=== PATIENT | female | born 1955 | race Caucasian/White ===

== ENCOUNTER 2016-08-04 12:34 | Inpatient (IN) | payer MEDICARE, OTHER ==
[2016-08-02 18:17] LABS: ASCORBIC ACID (UR NOT ORDER) NEG (NEG); BILIRUBIN, URINE NEGATIVE (NEG); KETONE, URINE NEGATIVE (NEG); LEUKOCYTE ESTERASE(NOT OR NEG (NEG); WBC (NOT ORDERED) (RFLEX) 1 (0-5)
[2016-08-02 18:25] LABS: BASOPHILS 0.4 %; BASOPHILS ABSOLUTE 0.03 10/3/uL (0.0-0.16); EOSINOPHILS 1.6 %; EOSINOPHILS ABSOLUTE 0.14 10/3/uL (0.0-0.53); HEMOGLOBIN 13.5 g/dL (12.0-16.0); IMMATURE GRANULOCYTES 0.1 %; IMMATURE GRANULOCYTES ABSOLUTE 0.01 10/3/uL (0.0-0.11); LYMPHOCYTES 41.9 %; LYMPHOCYTES ABSOLUTE 3.56 10/3/uL (0.67-4.30); MEAN CORPUS HGB CONC 34.6 g/dL (32.0-36.0); MEAN CORPUSCULAR HEMOGLOB 32.1 pg (26.0-34.0); MEAN CORPUSCULAR VOLUME 92.6 fL (80-100); MEAN PLATELET VOLUME 9.6 fL (9.2-13.0); MONOCYTES 7.6 %; MONOCYTES ABSOLUTE 0.65 10/3/uL (0.21-1.20); NEUTROPHILS 48.4 %; NEUTROPHILS ABSOLUTE 4.11 10/3/uL (2.02-8.40); PLATELET COUNT 296 10/3/uL (150-400); RBC DISTRIBUTION WIDTH 13.5 % (12.0-16.0); RED CELL COUNT 4.21 10/6/uL (4.0-5.6); WHITE BLOOD CELLS 8.5 10/3/uL (4.5-10.5)
[2016-08-02 18:26] LABS: MANUAL DIFF NO %
[2016-08-02 18:38] LABS: PROTIME (NOT ORD) 13.4 SEC (12.0-14.5)
[2016-08-02 18:46] LABS: A/G RATIO 1.2 (0.7-1.9); ALBUMIN 4.1 G/DL (3.5-5.0); ALKALINE PHOSPHATASE 81 U/L (45-117); BUN (BLOOD UREA NITROGEN) 10 MG/DL (6-23); CALCIUM, SERUM 10.1 MG/DL (8.5-10.4); CHLORIDE, SERUM 107 MMOL/L (96-112); CO2 (CARBON DIOXIDE) 25 MMOL/L (24-34); CREATININE 0.49 MG/DL (0.55-1.02); GFR AFRICAN AMERICAN 121 ML/MIN (>=60); GFR NON AFRICAN AMERICAN 104 ML/MIN (>=60); GLOBULIN 3.4 G/DL (2.5-4.1); GLUCOSE, SERUM 97 MG/DL (60-99); POTASSIUM, SERUM 4.5 MMOL/L (3.5-5.3); SGOT(AST) 19 U/L (5-40); SGPT(ALT) 22 U/L (5-65); SODIUM, SERUM 140 MMOL/L (135-148); TOTAL BILIRUBIN 0.2 MG/DL (0-1.2); TOTAL PROTEIN 7.5 G/DL (6.0-8.5)
--- NOTE | ~2016-08-04 | OP ---
Record Of Operation [facility] [address] [place]. [address] NAME: CHRISTINE BRICE : 51 STATUS : ADM [facility]#: [id number] AGE: 60 ADM/REG DATE : 08/04/16 MR#: [id number] REPORT SERV DATE: 08/05/16 DICTATED BY: IAN GUEVARA DATE: 08/04/16 REPORT STATUS : Draft TRANSCRIBED BY: MODL DATE: 08/04/16 DATE OF PROCEDURE: 08/04/2016 PREOPERATIVE DIAGNOSIS: Right hip infected deep hardware. POSTOPERATIVE DIAGNOSIS: Right hip infected deep hardware. PROCEDURE: Right hip hardware removal, I and D. INDICATIONS: A 60-year-old female, status post complex ORIF done at [place] by another surgeon who came in with severe increasing pain, swelling, and obvious infection of this hardware and came to me for definitive treatment. DESCRIPTION OF PROCEDURE: The patient was taken to the operating room and placed supine on the table in normal fashion without an incident. General anesthetic was induced per the anesthesiologist. The patient was carefully positioned, padded, prepped, and draped in normal sterile fashion. Sharp dissection was made through the old lateral incision, electrocautery through the fat, the IT band was split in line with its fibers, and gross purulence was encountered under pressure. This was sent for cultures and Gram stain. I meticulously debrided a large abscess type synovial sac and significant granulation tissue around the loosened hardware. The screws were taken out and plate removed. The two small anterior screws appeared to be in a separate compartment. I could not easily palpate them and opted not to open and start looking for them. I was concerned as small as they were that they might be buried in bone as well, and I did not want to put her through additional unnecessary trauma since that area appeared to be walled off from the current lateral area of infection. After meticulous and significant debridement, the wound was copiously irrigated with pulsatile lavage, packed with antibiotic beads, TXA, and closed over a drain. Wound dressed sterilely, and the patient awakened and taken to the postanesthesia care unit without incident. COMPLICATIONS: None. SPECIMENS: Cultures as described. BLOOD LOSS: About 50 mL. WTB/MODL Alberto Guevara M.D. / [id number]
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
--- NOTE | ~2016-08-04 | DS ---
Discharge Summary [facility] [address] [place]. [address] NAME: CHRISTINE BRICE : 51 STATUS : DIS IN PAT#: [id number] AGE: 60 ADM/REG DATE : 08/04/16 MR#: [id number] REPORT SERV DATE: 08/19/16 DICTATED BY: IAN GUEVARA DATE: 08/18/16 REPORT STATUS : Draft TRANSCRIBED BY: MODShi DATE: 08/18/16 Data Collection from hospitalization DISCHARGE DIAGNOSES: 1. Right hip infected deep hardware. 2. Hypertension. 3. Diabetes. 4. Chronic obstructive pulmonary disease. 5. Tobacco use. 6. Diabetic neuropathy. 7. Anxiety and depression. CONSULTATION: Dr. Boris Matt. PROCEDURES PERFORMED: Right hip hardware removal, incision and drainage, 08/04/2016. PATHOLOGY: Joint, bone, tissue, and hardware of right hip-soft tissue with fibrosis, chronic inflammation and patchy neutrophilic infiltrates consistent with history of septic joint. Orthopedic hardware-see gross description. MEDICATIONS: Xanax 1 mg twice a day, Norvasc 5 mg daily, Ecotrin 325 mg every morning, Ancef 2 g IM every eight hours, Celexa 20 mg daily, Lopid 600 mg twice a day, hydrochlorothiazide 25 mg daily, levothyroxine 50 mcg daily, Glucophage 500 mg with breakfast and supper, Percocet 5/325 one to two tablets every four hours as needed, Pravachol 40 mg at bedtime, Evista 60 mg at bedtime, Coumadin as instructed. CONDITION AT DISCHARGE: Stable. DISPOSITION: The patient was discharged home to be followed by home health care on an 1800- calorie diabetic diet with activities as instructed. She would follow up with me, 08/20/2016 and would follow up with Dr. Boris Sosa in six to seven weeks following discharge. HOSPITAL COURSE: This is a 60-year-old female, who had had complaints of severe constant right hip pain with a large knot that gets red and hot and is unbearable to touch. She was felt to have right hip infected deep hardware. She had undergone a complex open reduction and internal fixation at [place] by another surgeon in the past. Treatment options were discussed and it was elected to proceed with surgical intervention. She was admitted to the hospital at this time for further evaluation and treatment. Upon admission, she was taken to the operating room, where she underwent the above-mentioned procedure. She tolerated this well and there were no complications. On postop day one, INR level was 1.2. She had a normal respiratory effort. IV vancomycin was being provided. Sliding scale insulin had been started. She was seen by Dr. Boris Matt. Gram stain had shown a few white blood cells and rare gram-positive cocci. Operative culture and operative report were pending at this point. Vancomycin was going to be continued pending this information. Liver enzymes were within normal limits. Urinalysis had no inflammatory cells. He discussed the importance of keeping a diabetic diet, which she does not seem to Discharge Summary [facility] [id number] [facility] [place]. [address] NAME: CHRISTINE BRICE : 51 STATUS : DIS IN PAT#: [id number] AGE: 60 ADM/REG DATE : 08/04/16 MR#: [id number] REPORT SERV DATE: 08/19/16 DICTATED BY: IAN GUEVARA DATE: 08/18/16 REPORT STATUS : Draft TRANSCRIBED BY: CHRISTINE DATE: 08/18/16 do and discussed glycemic control. She does have chronic cervical spine pain, but currently had no tenderness to palpation at the site. She was evaluated by Occupational Therapy. A bladder scan had been performed. Her operative cultures were negative. Vancomycin was continued. She was also evaluated by Physical Therapy. On the , FAY hose were in place. We encouraged her to mobilize with Physical Therapy. Over the next couple of days, potassium supplementation was given. Her blood pressure was controlled. She remained afebrile. Her cultures remained negative. Discharge planning continued. Norvasc and hydrochlorothiazide were continued for elevated blood pressure. A PICC line was inserted. On 08/09/2016, she was up sitting in a bedside chair. A change in her antibiotic regimen was explained to the patient. Her antibiotic had been changed to Ancef with plans for 37 more days of treatment. Discharge instructions were given. Due to her improved and stable condition, she was discharged home to be followed by home health care with the above-stated instructions. Information collected by: Sydnee Lanier I submit the above information as my discharge summary. KO/CHIRSTINE Alberto Guevara M.D. / [id number] CC: Alana Davis,BRISA Matt M.D.
[~2016-08-04 12:34] MED LIST: ASAEC PO; CELEXA20 PO; EVISTA60 PO; GLUCPH PO; HYDROCHLOROT25 MG PO; LEVOTHYROXIN50 MCG PO; LOPID6 PO; MOBIC15 MG PO; NORCO1 TA2 PO; NORV5 PO; PRAVACHOL40 MG PO; XANAX1 MG PO
[2016-08-05 08:14] LABS: BASOPHILS 0.3 %; BASOPHILS ABSOLUTE 0.03 10/3/uL (0.0-0.16); EOSINOPHILS ABSOLUTE 0.09 10/3/uL (0.0-0.53); HEMOGLOBIN 10.8 g/dL (12.0-16.0); IMMATURE GRANULOCYTES 0.2 %; IMMATURE GRANULOCYTES ABSOLUTE 0.02 10/3/uL (0.0-0.11); LYMPHOCYTES 24.3 %; LYMPHOCYTES ABSOLUTE 2.21 10/3/uL (0.67-4.30); MEAN CORPUS HGB CONC 34.8 g/dL (32.0-36.0); MEAN CORPUSCULAR HEMOGLOB 32.1 pg (26.0-34.0); MEAN CORPUSCULAR VOLUME 92.3 fL (80-100); MEAN PLATELET VOLUME 9.9 fL (9.2-13.0); MONOCYTES 4.9 %; MONOCYTES ABSOLUTE 0.45 10/3/uL (0.21-1.20); NEUTROPHILS 69.3 %; NEUTROPHILS ABSOLUTE 6.31 10/3/uL (2.02-8.40); PLATELET COUNT 221 10/3/uL (150-400); RBC DISTRIBUTION WIDTH 13.3 % (12.0-16.0); WHITE BLOOD CELLS 9.1 10/3/uL (4.5-10.5)
[2016-08-05 08:15] LABS: MANUAL DIFF NO %; RED CELL COUNT 3.36 10/6/uL (4.0-5.6)
[2016-08-05 08:22] LABS: INTERNATIONAL NORMAL RATI 1.2 UNITS (-); PROTIME (NOT ORD) 14.7 SEC (12.0-14.5)
[2016-08-05 08:24] LABS: BUN (BLOOD UREA NITROGEN) 9 MG/DL (6-23); CALCIUM, SERUM 8.9 MG/DL (8.5-10.4); CHLORIDE, SERUM 107 MMOL/L (96-112); CO2 (CARBON DIOXIDE) 24 MMOL/L (24-34); CREATININE 0.45 MG/DL (0.55-1.02); GFR AFRICAN AMERICAN 124 ML/MIN (>=60); GFR NON AFRICAN AMERICAN 107 ML/MIN (>=60); GLUCOSE, SERUM 95 MG/DL (60-99); POTASSIUM, SERUM 3.6 MMOL/L (3.5-5.3); SODIUM, SERUM 140 MMOL/L (135-148)
[2016-08-06 06:12] LABS: BASOPHILS 0.3 %; BASOPHILS ABSOLUTE 0.02 10/3/uL (0.0-0.16); EOSINOPHILS 1.4 %; HEMATOCRIT 30.7 % (36.0-48.0); HEMOGLOBIN 10.6 g/dL (12.0-16.0); IMMATURE GRANULOCYTES 0.1 %; IMMATURE GRANULOCYTES ABSOLUTE 0.01 10/3/uL (0.0-0.11); LYMPHOCYTES 28.5 %; LYMPHOCYTES ABSOLUTE 2.07 10/3/uL (0.67-4.30); MEAN CORPUS HGB CONC 34.5 g/dL (32.0-36.0); MEAN CORPUSCULAR VOLUME 92.7 fL (80-100); MEAN PLATELET VOLUME 9.4 fL (9.2-13.0); MONOCYTES 8.5 %; MONOCYTES ABSOLUTE 0.62 10/3/uL (0.21-1.20); NEUTROPHILS 61.2 %; NEUTROPHILS ABSOLUTE 4.45 10/3/uL (2.02-8.40); PLATELET COUNT 214 10/3/uL (150-400); RBC DISTRIBUTION WIDTH 12.9 % (12.0-16.0); RED CELL COUNT 3.31 10/6/uL (4.0-5.6); WHITE BLOOD CELLS 7.3 10/3/uL (4.5-10.5)
[2016-08-06 06:13] LABS: MANUAL DIFF NO %
[2016-08-06 06:19] LABS: INTERNATIONAL NORMAL RATI 1.2 UNITS (-); PROTIME (NOT ORD) 14.7 SEC (12.0-14.5)
[2016-08-06 06:22] LABS: BUN (BLOOD UREA NITROGEN) 8 MG/DL (6-23); CALCIUM, SERUM 9.5 MG/DL (8.5-10.4); CHLORIDE, SERUM 105 MMOL/L (96-112); CO2 (CARBON DIOXIDE) 29 MMOL/L (24-34); GFR AFRICAN AMERICAN 120 ML/MIN (>=60); GFR NON AFRICAN AMERICAN 104 ML/MIN (>=60); GLUCOSE, SERUM 128 MG/DL (60-99); POTASSIUM, SERUM 3.3 MMOL/L (3.5-5.3); SODIUM, SERUM 141 MMOL/L (135-148)
[2016-08-07 04:43] LABS: BASOPHILS 0.3 %; BASOPHILS ABSOLUTE 0.02 10/3/uL (0.0-0.16); EOSINOPHILS 1.3 %; EOSINOPHILS ABSOLUTE 0.09 10/3/uL (0.0-0.53); HEMATOCRIT 28.5 % (36.0-48.0); HEMOGLOBIN 9.8 g/dL (12.0-16.0); IMMATURE GRANULOCYTES 0.1 %; IMMATURE GRANULOCYTES ABSOLUTE 0.01 10/3/uL (0.0-0.11); LYMPHOCYTES 34.7 %; LYMPHOCYTES ABSOLUTE 2.44 10/3/uL (0.67-4.30); MEAN CORPUS HGB CONC 34.4 g/dL (32.0-36.0); MEAN CORPUSCULAR HEMOGLOB 31.5 pg (26.0-34.0); MEAN CORPUSCULAR VOLUME 91.6 fL (80-100); MEAN PLATELET VOLUME 9.2 fL (9.2-13.0); MONOCYTES 9.4 %; MONOCYTES ABSOLUTE 0.66 10/3/uL (0.21-1.20); NEUTROPHILS 54.2 %; NEUTROPHILS ABSOLUTE 3.82 10/3/uL (2.02-8.40); PLATELET COUNT 198 10/3/uL (150-400); RBC DISTRIBUTION WIDTH 12.6 % (12.0-16.0); RED CELL COUNT 3.11 10/6/uL (4.0-5.6)
[2016-08-07 04:45] LABS: MANUAL DIFF NO %
[2016-08-07 04:47] LABS: INTERNATIONAL NORMAL RATI 1.2 UNITS (-); PROTIME (NOT ORD) 14.7 SEC (12.0-14.5)
[2016-08-07 04:54] LABS: BUN (BLOOD UREA NITROGEN) 8 MG/DL (6-23); CALCIUM, SERUM 10.4 MG/DL (8.5-10.4); CHLORIDE, SERUM 103 MMOL/L (96-112); CO2 (CARBON DIOXIDE) 31 MMOL/L (24-34); CREATININE 0.47 MG/DL (0.55-1.02); GFR AFRICAN AMERICAN 123 ML/MIN (>=60); GFR NON AFRICAN AMERICAN 106 ML/MIN (>=60); GLUCOSE, SERUM 129 MG/DL (60-99); POTASSIUM, SERUM 3.1 MMOL/L (3.5-5.3); SODIUM, SERUM 143 MMOL/L (135-148)
[2016-08-08 05:41] LABS: BASOPHILS 0.3 %; BASOPHILS ABSOLUTE 0.02 10/3/uL (0.0-0.16); EOSINOPHILS 1.9 %; EOSINOPHILS ABSOLUTE 0.12 10/3/uL (0.0-0.53); HEMATOCRIT 28.6 % (36.0-48.0); HEMOGLOBIN 10.1 g/dL (12.0-16.0); IMMATURE GRANULOCYTES 0.2 %; IMMATURE GRANULOCYTES ABSOLUTE 0.01 10/3/uL (0.0-0.11); LYMPHOCYTES 36.5 %; LYMPHOCYTES ABSOLUTE 2.28 10/3/uL (0.67-4.30); MEAN CORPUS HGB CONC 35.3 g/dL (32.0-36.0); MEAN CORPUSCULAR HEMOGLOB 32.1 pg (26.0-34.0); MEAN CORPUSCULAR VOLUME 90.8 fL (80-100); MEAN PLATELET VOLUME 9.3 fL (9.2-13.0); MONOCYTES 8.5 %; MONOCYTES ABSOLUTE 0.53 10/3/uL (0.21-1.20); NEUTROPHILS 52.6 %; NEUTROPHILS ABSOLUTE 3.28 10/3/uL (2.02-8.40); PLATELET COUNT 214 10/3/uL (150-400); RBC DISTRIBUTION WIDTH 12.9 % (12.0-16.0); RED CELL COUNT 3.15 10/6/uL (4.0-5.6); WHITE BLOOD CELLS 6.2 10/3/uL (4.5-10.5)
[2016-08-08 05:43] LABS: MANUAL DIFF NO %
[2016-08-08 05:47] LABS: INTERNATIONAL NORMAL RATI 1.1 UNITS (-); PROTIME (NOT ORD) 14.1 SEC (12.0-14.5)
[2016-08-08 05:51] LABS: BUN (BLOOD UREA NITROGEN) 8 MG/DL (6-23); CALCIUM, SERUM 10.5 MG/DL (8.5-10.4); CHLORIDE, SERUM 105 MMOL/L (96-112); CO2 (CARBON DIOXIDE) 27 MMOL/L (24-34); CREATININE 0.53 MG/DL (0.55-1.02); GFR AFRICAN AMERICAN 118 ML/MIN (>=60); GFR NON AFRICAN AMERICAN 102 ML/MIN (>=60); GLUCOSE, SERUM 130 MG/DL (60-99); POTASSIUM, SERUM 3.4 MMOL/L (3.5-5.3); SODIUM, SERUM 140 MMOL/L (135-148)
[2016-08-09 05:07] LABS: INTERNATIONAL NORMAL RATI 1.1 UNITS (-); PROTIME (NOT ORD) 14.2 SEC (12.0-14.5)
[2016-08-09] MEDS ORDERED: PCET PO (12:37)
[2016-08-09] MEDS ORDERED: C25 (12:38)
[2016-08-09] MEDS ORDERED: CEFAZ1 IM (12:38)
== END 2016-08-09 17:22 | disposition home health service (06) | DRG 482 ==
LOC: SDC/OF 12:34 → PACU 15:48 → 3SO 17:05
PROVIDERS: Nurse Practitioner; Specialist
PROC: 3E0U029 Introduction of Other Anti-infective into Joints, Open Approach (ICD-10-PCS; 2016-08-04)
PROC: 0SP904Z Removal of Internal Fixation Device from Right Hip Joint, Open Approach (ICD-10-PCS; principal; 2016-08-04 14:00)
PROC: 02HV33Z Insertion of Infusion Device into Superior Vena Cava, Percutaneous Approach (ICD-10-PCS; 2016-08-09)
PROC: 4A02X4A Measurement of Cardiac Electrical Activity, Guidance, External Approach (ICD-10-PCS; 2016-08-09)
DX: T84.51XA Infection and inflammatory reaction due to internal right hip prosthesis, initial encounter (principal); E87.5 Hyperkalemia; I10 Essential (primary) hypertension; J44.9 Chronic obstructive pulmonary disease, unspecified; E11.9 Type 2 diabetes mellitus without complications; I25.10 Atherosclerotic heart disease of native coronary artery without angina pectoris; E03.9 Hypothyroidism, unspecified; E78.5 Hyperlipidemia, unspecified
CPT/HCPCS: 36569; 71020; 80048; 80053; 80202; 81001; 82962; 83036; 84132; 85025; 85610; 87015; 87070; 87075; 87077; 87102; 87116; 87186; 87205; 88300; 88304; 88311; 93005; 97110-GP; 97116-GP; 97161-GP; 97166-GO; 97530-GP; 97535-GO; A9270-GY; C1751; G8978-CK-GP; G8979-CK-GP; G8980-CJ-GP; G8987-CK-GO; G8988-CJ-GO; J0690; J1170; J1885; J2250; J2274; J2405; J2710; J2795; J3010; J3260; J3370